=== PATIENT | male | born 1945 | race Caucasian/White ===

== ENCOUNTER 2019-01-09 20:02 | Emergency (ER) | payer MEDICARE, BC ==
--- OUTSIDE RECORDS SUMMARY | 2019-01-09 20:08 | XMS REPORT | Continuity of Care Document ---
:1945 External Reference #:[id number] Author Name Thalia Brothers Care Team Providers Name Role Phone Carlos Lester III, MD Primary Care Physician Unavailable Payers Date Identification Numbers Payment Provider Subscriber Effective: 2011 Policy Number: [id number] Medicare Joseph Philip PayID: [id number] [address] [place] [address] Effective: 2011 Policy Number: [id number] BS Facets Nayely Philip PayID: [id number] [address] [address] JOSE [place]ADALUPE Jimenez [phone] Effective: 2010 Policy Number: [id number] BS Of SINDI Philip Expires: 2011 PayID: [id number] [address] [address] JOSE GUADALUPE Jimenez [phone] Expires: 2010 Policy Number: [id number] BS Of SINDI Philip PayID: [id number] [address] [address] JOSE GUADALU[place] Jimenez [phone] Advance Directives Type Date Description Status Comment Other Directive 08/31/1996 Health Care Proxy Current and Verified Problems Active Problems Provider Date Benign essential hypertension Carlos Lester M.D. Onset: 02/22/2011 Benign localized hyperplasia of prostate Carlos Lester M.D. Onset: 2010 Pure hypercholesterolemia Carlos Lester M.D. Onset: 09/04/2013 Minimal cognitive impairment Carlos Lester M.D. Onset: 06/27/2017 Benign prostatic hypertrophy without outflow Carlos Lester M.D. Onset: obstruction Essential hypertension Carlos Lester M.D. Onset: 07/07/2016 Family History Date Family Member(s) Observation Comments General Unknown Adopted Father Unknown Father due to Sudden () - adoptive father: mid 80s Mother Unknown Mother due to Natural Causes () - Adoptive mother: age 98 First Brother non-identical twin obesity; ? HTN Social History Type Date Description Comments Sex Unknown Marital Status Lives With Occupation [employer] for a car [employer] needed [employer] Occupation Retired Tobacco Use Start: Unknown Never Smoked Cigarettes ETOH Use Occasionally consumes beer Tobacco Use Start: Unknown Patient has never smoked Recreational Drug Use Never Used Drugs Smoking Status Reviewed: 12/28/18 Patient has never smoked Exercise Type/Frequency Exercises regularly active around the house; walks on occ Allergies, Adverse Reactions, Alerts Description No Known Drug Allergies Medications Active Medications SIG Qnty Indications Ordering Provider Date Donepezil HCL 1 by mouth every 30tabs Juan Francisco Samson, 2018 10mg day M.D. Tablets Lisinopril-Hydrochlor take 1 tablet by 30tabs Carlos Lester, 2006 othiazide mouth every M.D. 20-25mg morning Tablets Quetiapine Fumarate 1 tab daily by Unknown mouth 25mg Tablets History Medications Vitamin D High Potency 1 by mouth Carlos Lester, 01/15/2016 - every day M.D. 07/07/2016 1000Unit Capsules Citalopram 1 po qd 30tabs 311 Carlos Lester, 01/07/2010 - Hydrobromide M.D. 08/07/2010 20mg Tablets Motrin Ib prn Unknown - 200mg Tablets 01/07/2010 Donepezil HCL 1 tab by mouth Juan Francisco Samson, - 5mg Tablets every day M.D. 2018 Immunizations CPT Code Status Date Vaccine Lot # [id number] Given 04/24/2018 Pneumonia Vaccine [id number] Given 04/24/2018 Influenza Virus Vaccine, Quadrivalent, Split, Preservative Free 37154 Given 04/01/2017 Influenza Virus Vaccine, Quadrivalent, Split, Preservative Free 26740 Given 04/01/2017 Pneumococcal Conjugate Vaccine 13 Valent For Intramuscular Use 96704 Given 04/19/2016 Fluzone High Dose 37931 Given 08/01/2015 Zoster (Zostavax) 46299 Given 04/18/2015 Influenza Virus Vaccine, Quadrivalent, Split, [id number] Preservative Free 77521 Given 09/04/2014 Pneumococcal Conjugate Vaccine 13 Valent For [id number] Intramuscular Use 97492 Given 04/14/2014 Fluzone High Dose 07671 Given 09/04/2013 Tdap - Tetanus/Diptheria/Acellular Pertussis [id number] Given 04/27/2013 Afluria Vaccine [id number] Given 04/19/2012 Fluzone Vaccine [id number] 00455 Given 02/17/2012 Pneumonia Vaccine [id number] 70388 Given 05/07/2008 Influenza Virus 3Yrs & Over 02247 Given 05/07/2008 Influenza Virus 3Yrs & Over 93554 Given 08/15/2003 Td (History By Patient) Vital Signs Date Vital Result Comment 2018 9:10am Height 67 inches 5'7" Weight 175.00 lb Heart Rate 68 /min BP Systolic Sitting 124 mmHg BP Diastolic Sitting 70 mmHg Respiratory Rate 16 /min O2 % BldC Oximetry 97 % BMI (Body Mass Index) 27.4 kg/m2 06/27/2017 9:40am Height 67.5 inches 5'7.50" Weight 182.00 lb Heart Rate 77 /min BP Systolic Sitting 120 mmHg BP Diastolic Sitting 78 mmHg Body Temperature 97.2 F O2 % BldC Oximetry 98 % BMI (Body Mass Index) 28.1 kg/m2 07/07/2016 9:56am Weight 179.00 lb Heart Rate 70 /min BP Systolic Sitting 112 mmHg BP Diastolic Sitting 80 mmHg Body Temperature 97.6 F O2 % BldC Oximetry 97 % 01/06/2016 3:54pm Height 67.5 inches 5'7.50" Weight 180.00 lb Heart Rate 67 /min BP Systolic Sitting 128 mmHg BP Diastolic Sitting 80 mmHg Body Temperature 97.4 F BMI (Body Mass Index) 27.8 kg/m2 09/04/2014 9:10am Height 67.75 inches 5'7.75" Weight 186.00 lb Heart Rate 66 /min BP Systolic Sitting 118 mmHg BP Diastolic Sitting 78 mmHg Body Temperature 97.7 F BMI (Body Mass Index) 28.5 kg/m2 03/04/2014 10:31am Height 67.75 inches 5'7.75" Weight 175.75 lb Heart Rate 68 /min BP Systolic Sitting 116 mmHg BP Diastolic Sitting 64 mmHg Body Temperature 98.0 F BMI (Body Mass Index) 26.9 kg/m2 09/04/2013 2:52pm Height 68 inches 5'8" Weight 179.50 lb Heart Rate 76 /min BP Systolic Sitting 136 mmHg BP Diastolic Sitting 88 mmHg BMI (Body Mass Index) 27.3 kg/m2 02/17/2012 8:44am Height 68.25 inches 5'8.25" Weight 177.75 lb Heart Rate 72 /min BP Systolic Sitting 120 mmHg BP Diastolic Sitting 78 mmHg BMI (Body Mass Index) 26.8 kg/m2 08/25/2011 9:12am Height 68.25 inches 5'8.25" Weight 186.50 lb Heart Rate 76 /min BP Systolic Sitting 98 mmHg BP Diastolic Sitting 76 mmHg BMI (Body Mass Index) 28.1 kg/m2 02/22/2011 3:39pm Weight 180.00 lb Heart Rate 66 /min BP Systolic Sitting 112 mmHg BP Diastolic Sitting 74 mmHg 08/07/2010 9:09am Weight 187.00 lb Heart Rate 82 /min BP Systolic Sitting 124 mmHg BP Diastolic Sitting 80 mmHg O2 % BldC Oximetry 95 % 02/04/2010 10:49am Weight 175.00 lb Heart Rate 78 /min BP Systolic Sitting 116 mmHg BP Diastolic Sitting 78 mmHg 01/07/2010 9:50am Weight 175.75 lb Heart Rate 66 /min BP Systolic Sitting 120 mmHg BP Diastolic Sitting 78 mmHg 09/29/2009 10:48am Height 68.75 inches 5'8.75" Weight 185.00 lb Heart Rate 72 /min BP Systolic Sitting 126 mmHg BP Diastolic Sitting 78 mmHg BMI (Body Mass Index) 27.5 kg/m2 01/11/2008 9:50am Height 68.75 inches 5'8.75" Weight 182.00 lb Heart Rate 76 /min BP Systolic Sitting 114 mmHg BP Diastolic Sitting 74 mmHg BMI (Body Mass Index) 27.1 kg/m2 07/10/2007 11:09am Height 68.75 inches 5'8.75" Weight 189.00 lb Heart Rate 72 /min BP Systolic Sitting 118 mmHg BP Diastolic Sitting 78 mmHg BMI (Body Mass Index) 28.1 kg/m2 Results Test Date Facility Test Result H/L Range Note Vitamin B12 And 2018 [facility] Vitamin B12 <pending> Folate Serum [address] [place] [address] [phone] Folic Acid (Folate) <pending> Laboratory test 2018 [facility] Methylmalonic Acid < pending> finding [address] [place] [address] [phone] Lipid Profile 06/20/2017 [facility] Triglycerides 90 mg/dL 1 (Trig/Chol/HDL) [address] [place] [address] [phone] Cholesterol 189 mg/dL 2 HDL Cholesterol 41.7 mg/dL 3 LDL Cholesterol 129 mg/dL 4 Comp Metabolic Panel 06/20/2017 [facility] Sodium 138 mmol/L N 133-[address] [place] [address] [phone] Potassium 4.4 mmol/L N 3.5-5.0 Chloride 102 mmol/L N 101-111 Co2 Carbon Dioxide 31 mmol/L N 22-32 Anion Gap 5 mmol/L N 2-11 Glucose 80 mg/dL N 70-100 Blood Urea Nitrogen 14 mg/dL N 6-24 Creatinine 0.83 mg/dL N 0.67-1.17 BUN/Creatinine Ratio 16.9 N 8-20 Calcium 9.7 mg/dL N 8.6-10.3 Total Protein 7.5 g/dL N 6.4-8.9 Albumin 4.2 g/dL N 3.2-5.2 Globulin 3.3 g/dL N 2-4 Albumin/Globulin Ratio 1.3 N 1-3 Total Bilirubin 0.80 mg/dL N 0.2-1.0 Alkaline Phosphatase 78 U/L N 34-104 Alt 19 U/L N 7-52 Ast 20 U/L N 13-39 Egfr Non- 91.6 >60 Egfr 117.8 >60 5 Laboratory test 01/08/2016 [facility] TSH (Thyroid 1.48 ?IU/mL N 0.34-5.[address] Stim Horm) [place] [address] [phone] Urinalysis 01/08/2016 [facility] Urine Color Yellow N Profile [address] [place] [address] [phone] Urine Appearance Clear N Urine Specific [place] 1.025 N 1.010-1.030 Urine pH 5.0 N 5-9 Urine Urobilinogen Negative N Negative Urine Ketones Negative N Negative Urine Protein Negative N Negative Urine Leukocytes Negative N Negative Urine Blood Negative N Negative Urine Nitrite Negative N Negative Urine Bilirubin Negative N Negative Urine Glucose Negative N Negative Vitamin B12 And 01/08/2016 [facility] Vitamin B12 183 pg/mL N 180-914 [address] [place] [address] [phone] Folic Acid (Folate) > 20.00 ng/mL N >3.99 8 Laboratory 01/08/2016 [facility] Syphillis Igg Nonreactive N Nonreactive [address] W/[place] [address] [phone] Vitamin D Total 25(Oh) 23.3 ng/mL Low 30-50 10 PSA Screening 3.877 ng/mL N 0-4.000 11 Lipid Profile 12/30/2015 [facility] Triglycerides 91 mg/dL N 12 (Trig/Chol/HDL) [address] [place] [address] [phone] Cholesterol 191 mg/dL N 13 HDL Cholesterol 37.9 mg/dL N 14 LDL Cholesterol 135 mg/dL N 15 Comp Metabolic Panel 12/30/2015 [facility] Sodium 137 mmol/L N 133-145 [address] [place] [address] [phone] Potassium 4.2 mmol/L N 3.5-5.0 Chloride 104 mmol/L N 101-111 Co2 Carbon Dioxide 27 mmol/L N 22-32 Anion Gap 6 mmol/L N 2-11 Glucose 91 mg/dL N 70-100 Blood Urea Nitrogen 9 mg/dL N 6-24 Creatinine 0.79 mg/dL N 0.67-1.17 BUN/Creatinine Ratio 11.4 N 8-20 Calcium 9.3 mg/dL N 8.6-10.3 Total Protein 7.4 g/dL N 6.4-8.9 Albumin 4.3 g/dL N 3.2-5.2 Globulin 3.1 g/dL N 2-4 Albumin/Globulin Ratio 1.4 N 1-3 Total Bilirubin 0.70 mg/dL N 0.2-1.0 Alkaline Phosphatase 76 U/L N 34-104 Alt 24 U/L N 7-52 Ast 23 U/L N 13-39 Egfr Non- 97.2 N >60 Egfr 125.1 N >60 16 Laboratory 08/28/2014 [facility] Hepatitis C Nonreactive N Nonreactive 17, test finding [address] Antibody 18 [place] [address] [phone] PSA Screening 3.572 ng/mL N 0-4.000 19 Lipid Profile 08/28/2014 [facility] Triglycerides 87 mg/dL N 20 (Trig/Chol/HDL) [address] [place] [address] [phone] Cholesterol 190 mg/dL N 21 HDL Cholesterol 41.9 mg/dL N 22 LDL Cholesterol 131 mg/dL N 23 Comp Metabolic Panel 08/28/2014 [facility] Sodium 137 mmol/L N 133-[address] [place] [address] [phone] Potassium 4.8 mmol/L N 3.5-5.0 Chloride 103 mmol/L N 101-111 Co2 Carbon Dioxide 30 mmol/L N 22-32 Anion Gap 4 mmol/L N 2-11 Glucose 91 mg/dL N 70-100 Blood Urea Nitrogen 11 mg/dL N 6-24 Creatinine 0.77 mg/dL N 0.67-1.17 BUN/Creatinine Ratio 14.3 N 8-20 Calcium 9.6 mg/dL N 8.6-10.3 Total Protein 7.4 g/dL N 6.4-8.9 Albumin 4.4 g/dL N 3.2-5.2 Globulin 3.0 g/dL N 2-4 Albumin/Globulin Ratio 1.5 N 1-3 Total Bilirubin 0.70 mg/dL N 0.2-1.0 Alkaline Phosphatase 70 U/L N 34-104 Alt 20 U/L N 7-52 Ast 21 U/L N 13-39 Egfr Non- 100.8 N >60 Egfr 129.6 N >60 24 CBC Auto 08/28/2014 [facility] White Blood 4.4 10^3/uL Low 4.8 -10.[address] [place] [address] [phone] Red Blood Count 5.09 10^6/uL N 4.0-5.4 Hemoglobin 15.5 g/dL N 14.0-18.0 Hematocrit 46 % N 42-52 Mean Corpuscular Volume 90 fL N 80-94 Mean Corpuscular Hemoglobin 30 pg N 27-31 Mean Corpuscular HGB Conc 34 g/dL N 31-36 Red Cell Distribution Width 14 % N 10.5-15 Platelet Count 232 10^3/uL N 150-450 Mean Platelet Volume 9 um3 N 7.4-10.4 Abs Neutrophils 2.6 10^3/uL N 1.5-7.7 Abs Lymphocytes 1.2 10^3/uL N 1.0-4.8 Abs Monocytes 0.4 10^3/uL N 0-0.8 Abs Eosinophils 0.1 10^3/uL N 0-0.6 Abs Basophils 0.1 10^3/uL N 0-0.2 Abs Nucleated RBC 0.01 10^3/uL N Granulocyte % 59.5 % N 38-83 Lymphocyte % 26.5 % N 25-47 Monocyte % 9.5 % High 1-9 Eosinophil % 2.3 % N 0-6 Basophil % 2.2 % High 0-2 Nucleated Red Blood Cells % 0.2 N Lipid Profile 08/27/2013 [facility] Triglycerides 70 mg/dL 40 -200 (Trig/Chol/HDL) [address] [place] [address] [phone] Cholesterol 209 mg/dL High Less than 200 HDL Cholesterol 49 mg/dL 40-60 25 Cholesterol/HDL Ratio 4.3 Average 1-4.44 LDL Cholesterol 146.0 High Less Than 100 26 Laboratory test 08/27/2013 [facility] PSA Diagnostic 3.281 0- 4.000 [address] ng/[place] [address] [phone] Basic Metabolic 08/27/2013 [facility] Sodium 136 mmol/L 133- [address] [place] [address] [phone] Potassium 4.2 mmol/L 3.5-5.0 Chloride 101 mmol/L 101-111 Co2 Carbon Dioxide 29.0 mmol/L 22-32 Anion Gap 6.0 mmol/L 2-11 Glucose 88 mg/dL 70-100 Blood Urea Nitrogen 8 mg/dL 6-24 Creatinine 0.80 mg/dL 0.50-1.40 BUN/Creatinine Ratio 10.0 8-20 Calcium 9.4 mg/dL 8.1-9.9 Egfr Non- 96.7 >60 Egfr 124.4 >60 28 Comp Metabolic Panel 02/14/2012 [facility] Sodium 139 mmol/L 135-145 [address] [place] [address] [phone] Potassium 3.9 mmol/L 3.5-5.0 Chloride 107 mmol/L 101-111 Co2 (Carbon Dioxide) 26.0 mmol/L 22-32 Anion Gap 6.0 mmol/L 2-11 29 Glucose 86 mg/dL 70-100 BUN 9 mg/dL 6-24 Creatinine 0.9 mg/dL 0.50-1.40 One Over Creatinine 1.11 BUN/Creatinine Ratio 10.0 8-20 Calcium 9.4 mg/dL 8.1-9.9 Total Protein 6.7 GM/DL 6.2-8.1 Albumin 4.0 GM/DL 3.2-5.2 Globulin 2.7 GM/DL 2-4 Albumin/Globulin Ratio 1.5 1-3 Bilirubin Total 1.0 mg/dL 0.4-1.5 30 Alkaline Phosphatase 80 U/L 39-117 Alt (SGPT) 18 U/L 17-63 Ast (Sgot) 27 U/L 12-42 eGFR Non- 84.7 > 60 eGFR 108.9 > 60 31 Lipid Profile 02/14/2012 [facility] Triglyceride 81 mg/dL 40- 200 (Trig/Chol/HDL) [address] [place] [address] [phone] Cholesterol 177 mg/dL Less Than 200 32 High Density Lipoprotein 39 mg/dL Low 40-60 33 Cholesterol/HDL Ratio 4.54 AVERAGE 1-4.97 Low Density Lipoprotein 122 mg/dL High Less Than 100 34 Laboratory test 02/14/2012 [facility] PSA 2.72 NG/ML 0-4 35 finding [address] [place] [address] [phone] DR [facility] 01/13/2011 [facility] TSH 2.16 MIU/ML 0.34- 5.60 Panel [address] [place] [address] [phone] Comp Metabolic 01/13/2011 [facility] Sodium 139 mmol/L 135- 145 Panel [address] [place] [address] [phone] Potassium 4.3 mmol/L 3.5-5.0 Chloride 103 mmol/L 101-111 Co2 (Carbon Dioxide) 28.0 mmol/L 22-32 Anion Gap 8.0 mmol/L 2-11 36 Glucose 73 mg/dL 70-100 BUN 11 mg/dL 6-24 Creatinine 0.80 mg/dL 0.50-1.40 One Over Creatinine 1.20 BUN/Creatinine Ratio 13.8 8-20 Calcium 9.4 mg/dL 8.1-9.9 Total Protein 7.3 GM/DL 6.2-8.1 Albumin 4.1 GM/DL 3.2-5.2 Globulin 3.2 GM/DL 2-4 Albumin/Globulin Ratio 1.3 1-3 Bilirubin Total 0.8 mg/dL 0.4-1.5 37 Alkaline Phosphatase 79 U/L 39-117 Alt (SGPT) 19 U/L 17-63 Ast (Sgot) 22 U/L 12-42 eGFR Non- 97.3 > 60 eGFR 125.2 > 60 38 Lipid Profile 01/13/2011 [facility] Triglyceride 84 mg/dL 40- 200 (Trig/Chol/HDL) [address] [place] [address] [phone] Cholesterol 195 mg/dL Less Than 200 39 High Density Lipoprotein 44 mg/dL 40-60 40 Cholesterol/HDL Ratio 4.43 AVERAGE 1-4.97 Low Density Lipoprotein 134 mg/dL High Less Than 100 41 CBC With 01/13/2011 [facility] White Blood 5.1 CUMM 4.8-10.8 Electronic Diff [address] [place] [address] [phone] Red Cell Count 4.76 CUMM 4.6-6.2 Hemoglobin 14.6 g/dL 14.0-18.0 Hematocrit 44 % 42-52 Mean Corpuscular Volume 92 um3 80-94 Mean Corpuscular Hemoglob 31 pg 27-31 Mean Corpuscular HGB Cone 33 g/dL 32-36 Redcell Distribution WDTH 14 % 10.5-15 Platelet Count 244 CUMM 150-450 Mean Platelet Volume 8.5 um3 7.4-10.4 Gran % 66.7 % 38-83 Lymph % 23.0 % Low 25-47 Mononuclear % 7.9 % 1-9 Eosinophil % 1.8 % 0-6 Basophil % 0.6 % 0-2 Abs Lymphs 1.2 1.0-4.8 Abs Mononuclear 0.4 0-0.8 Absolute Neutrophil Count 3.4 1.5-7.7 Abs Eosinophils 0.1 0-0.6 Abs Basophils 0 0-0.2 CBC With Manual 01/07/2010 [facility] White Blood 6.3 CUMM 4.8-10.[address] [place] [address] [phone] Red Cell Count 4.99 CUMM 4.6-6.2 Hemoglobin 15.4 g/dL 14.0-18.0 Hematocrit 45 % 42-52 Mean Corpuscular Volume 89 um3 80-94 Mean Corpuscular Hemoglob 31 pg 27-31 Mean Corpuscular HGB Cone 35 g/dL 32-36 Redcell Distribution WDTH 15 % 10.5-15 Platelet Count 264 CUMM 150-450 Mean Platelet Volume 8.1 um3 7.4-10.4 Polysegmented Neutrophil 73 % 38-83 Band Neutrophil 2 % 0-8 Lymphocyte 15 % Low 25-47 Monocyte 4 % 0-13 Basophil 2 % 0-2 Atypical Lymph 4 % 0-6 NRBC 1 High 0-0 Absolute Neutrophil Count 4.7 Anisocytosis SLIGHT Polychromasia SLIGHT Laboratory test 01/07/2010 [facility] TSH 1.49 MIU/ML 0.34- 5.[address] [place] [address] [phone] PSA Screening 2.63 NG/ML 0-4 42 Basic Metabolic Panel 01/07/2010 [facility] Sodium 139 mmol/L 135-[address] [place] [address] [phone] Potassium 4.9 mmol/L 3.5-5.0 Chloride 103 mmol/L 101-111 Co2 (Carbon Dioxide) 28.0 mmol/L 22-32 Anion Gap 8.0 mmol/L 2-11 43 Glucose 95 mg/dL 70-100 44 BUN 9 mg/dL 6-24 Creatinine 0.80 mg/dL 0.50-1.40 One Over Creatinine 1.20 BUN/Creatinine Ratio 11.3 8-20 Calcium 10.1 mg/dL High 8.1-9.9 45 eGFR Non- 103.8 > 60 eGFR 125.6 > 60 46 Laboratory test 09/22/2009 [facility] Troponin-I 0 NG/ML [address] (TnI) [place] [address] [phone] CBC With Manual 09/22/2009 [facility] White Blood 12.3 CUMM High 4.8-[address] Count 0.8 [place] [address] [phone] Red Cell Count 4.91 CUMM 4.6-6.2 Hemoglobin 15.2 g/dL 14.0-18.0 Hematocrit 43 % 42-52 Mean Corpuscular Volume 88 um3 80-94 Mean Corpuscular Hemoglob 31 pg 27-31 Mean Corpuscular HGB Cone 35 g/dL 32-36 Redcell Distribution WDTH 14 % 10.5-15 Platelet Count 236 CUMM 150-450 Mean Platelet Volume 7.1 um3 Low 7.4-10.4 Polysegmented Neutrophil 85 % High 38-83 Band Neutrophil 3 % 0-8 Lymphocyte 2 % Low 25-47 Monocyte 7 % 0-13 Basophil 1 % 0-2 Atypical Lymph 2 % 0-6 Absolute Neutrophil Count 10.8 Anisocytosis SLIGHT Macrocytosis SLIGHT Polychromasia SLIGHT CMP Panel Stat 09/22/2009 [facility] Sodium 132 mmol/L Low 135 -[address] [place] [address] [phone] Potassium 3.7 mmol/L 3.5-5.0 Chloride 100 mmol/L Low 101-111 Co2 (Carbon Dioxide) 27.0 mmol/L 22-32 Anion Gap 5.0 mmol/L 2-11 48 Glucose 120 mg/dL High 70-100 49 BUN 11 mg/dL 6-24 Creatinine 0.75 mg/dL 0.50-1.40 One Over Creatinine 1.30 BUN/Creatinine Ratio 14.7 8-20 Calcium 9.3 mg/dL 8.1-9.9 50 Total Protein 7.3 GM/DL 6.2-8.1 Albumin 4.1 GM/DL 3.2-5.2 Globulin 3.2 GM/DL 2-4 Albumin/Globulin Ratio 1.3 1-3 Bilirubin Total 0.9 mg/dL 0.4-1.5 51 Alkaline Phosphatase 67 U/L 39-117 Alt (SGPT) 31 U/L 17-63 Ast (Sgot) 46 U/L High 12-42 eGFR Non- 112.2 > 60 eGFR 135.7 > 60 52 Laboratory 07/01/2008 [facility] PSA,Diagnostic 2.13 0-4 53 , 54 test finding [address] NG/[place] [address] [phone] CBC With 01/10/2008 [facility] White Blood Count 5.1 CUMM 4.8 -10. Electronic [address] [place] [address] [phone] Red Cell Count 4.80 CUMM 4.6-6.2 Hemoglobin 14.4 g/dL 14.0-18.0 Hematocrit 42 % 42-52 Mean Corpuscular Volume 87 um3 80-94 Mean Corpuscular Hemoglob 30 pg 27-31 Mean Corpuscular HGB Cone 35 g/dL 32-36 Redcell Distribution WDTH 14 % 10.5-15 Platelet Count 276 CUMM 150-450 Mean Platelet Volume 8.6 um3 7.4-10.4 Gran % 66.3 % 38-83 Lymph % 22.1 % 20-45 Mononuclear % 9.6 % High 1-9 Eosinophil % 1.6 % 0-6 Basophil % 0.4 % 0-2 Abs Lymphs 1.1 1.0-4.8 Abs Mononuclear 0.5 0-0.8 Absolute Neutrophil Count 3.4 1.5-7.7 Abs Eosinophils 0.1 0-0.6 Abs Basophils 0 0-0.2 Comp Metabolic Panel 01/10/2008 [facility] Sodium 137 mmol/L 135-[address] [place] [address] [phone] Potassium 5.3 mmol/L High 3.5-5.0 Chloride 105 mmol/L 101-111 Co2 (Carbon Dioxide) 30.0 mmol/L 22-32 Anion Gap 2.0 mmol/L 2-11 55 Glucose 93 mg/dL 70-105 BUN 11 mg/dL 6-24 Creatinine 0.9 mg/dL 0.5-1.4 One Over Creatinine 1.11 BUN/Creatinine Ratio 12.2 8-20 Calcium 9.3 mg/dL 8.1-9.9 56 Total Protein 7.5 GM/DL 6.2-8.1 Albumin 3.9 GM/DL 3.2-5.2 Globulin 3.6 GM/DL 2-4 Albumin/Globulin Ratio 1.1 1-3 Bilirubin Total 0.7 mg/dL 0.4-1.5 Alkaline Phosphatase 80 U/L 39-117 Alt (SGPT) 22 U/L 17-63 Ast (Sgot) 25 U/L 12-42 Lipid Profile 01/10/2008 [facility] Triglyceride 45 mg/dL 40- 200 (Trig/Chol/HDL) [address] [place] [address] [phone] Cholesterol 169 mg/dL Less Than 200 57 High Density Lipoprotein 38 mg/dL Low 40-60 58 Cholesterol/HDL Ratio 4.45 AVERAGE 1-4.97 Low Density Lipoprotein 122 mg/dL High Less Than 100 59 Laboratory test 01/10/2008 [facility] TSH 1.61 MIU/ML 0.34- 5.60 finding [address] [place] [address] [phone] PSA Screening 2.30 NG/ML 0-4 60 1 Desirable: <150 Borderline High: 150-199 High: 200-499 Very High: >500 2 Desirable: <200 Borderline High: 200-239 High: >239 3 Low: <40 Desirable: 40-60 High: >60 4 Desirable: <100 Near Optimal: 100-129 Borderline High: 130-159 High: 160-189 Very High: >189 5 Because ethnic data is not always readily available, this report includes an eGFR for both -Americans and non- Americans. The National Kidney Disease Education Program (NKDEP) does not endorse the use of the MDRD equation for patients that are not between the ages of 18 and 70, are , have extremes of body size, muscle mass, or nutritional status, or are non- or non-. According to the National Kidney Foundation, irrespective of diagnosis, the stage of the disease is based on the level of kidney function: Stage Description GFR(mL/min/1.73 m(2)) 1 Kidney damage with normal or decreased GFR 90 2 Kidney damage with mild decrease in GFR 60-89 3 Moderate decrease in GFR 30-59 4 Severe decrease in GFR 15-29 5 Kidney failure <15 (or dialysis) 6 [id number] Normal Range 180 to 914 Indeterminate Range 145 to 180 Deficient Range <145 8 [id number] Warning: A positive result is not useful for establishing a diagnosis of syphilis. In most situations, such a result may reflect a prior treated infection; a negative result can exclude a diagnosis of syphilis except for incubating or early primary disease. 10 [id number] Serum levels of PSA measured using the [employer] DXI Hybritech immunoassay should not be interpreted as absolute evidence of the presence or absence of disease. The PSA value should be used in conjunction with other pertinent clinical diagnostic procedures. The values obtained with different assay methods or kits cannot be used interchangeably. 12 Desirable <150 Borderline high 150-199 High 200-499 Very High >500 13 Desirable <200 Borderline high 200-239 High >239 14 Low <40 Desirable: 40-60 High: >60 15 Desirable: <100 mg/dL Near Optimal: 100-129 mg/dL Borderline High: 130-159 mg/dL High: 160-189 mg/dL Very High: >189 mg/dL 16 Because ethnic data is not always readily available, this report includes an eGFR for both -Americans and non- Americans. The National Kidney Disease Education Program (NKDEP) does not endorse the use of the MDRD equation for patients that are not between the ages of 18 and 70, are , have extremes of body size, muscle mass, or nutritional status, or are non- or non-. According to the National Kidney Foundation, irrespective of diagnosis, the stage of the disease is based on the level of kidney function: Stage Description GFR(mL/min/1.73 m(2)) 1 Kidney damage with normal or decreased GFR 90 2 Kidney damage with mild decrease in GFR 60-89 3 Moderate decrease in GFR 30-59 4 Severe decrease in GFR 15-29 5 Kidney failure <15 (or dialysis) 17 FASTING 18 FASTING 19 Serum levels of PSA measured using the [employer] DXI Hybritech immunoassay should not be interpreted as absolute evidence of the presence or absence of disease. The PSA value should be used in conjunction with other pertinent clinical diagnostic procedures. The values obtained with different assay methods or kits cannot be used interchangeably. 20 Desirable <150 Borderline high 150-199 High 200-499 Very High >500 21 Desirable <200 Borderline high 200-239 High >239 22 Low <40 Desirable: 40-60 High: >60 23 Desirable <100 Near Optimal 100-129 Borderline high 130-159 High 160-189 Very High >189 24 Because ethnic data is not always readily available, this report includes an eGFR for both -Americans and non- Americans. The National Kidney Disease Education Program (NKDEP) does not endorse the use of the MDRD equation for patients that are not between the ages of 18 and 70, are , have extremes of body size, muscle mass, or nutritional status, or are non- or non-. According to the National Kidney Foundation, irrespective of diagnosis, the stage of the disease is based on the level of kidney function: Stage Description GFR(mL/min/1.73 m(2)) 1 Kidney damage with normal or decreased GFR 90 2 Kidney damage with mild decrease in GFR 60-89 3 Moderate decrease in GFR 30-59 4 Severe decrease in GFR 15-29 5 Kidney failure <15 (or dialysis) 25 HDL Interpretation: Undesirable: High Risk: Less than 40 mg/dL Desirable: Low Risk: Greater than 60 mg/dL 26 LDL Interpretation: Low Risk Optimal Level: LDL Less than 100 mg/dL Near or Above Optimal: LDL 100-129 mg/dL Borderline High Risk: LDL 130-159 mg/dL High Risk: LDL 160-189 mg/dL Very High Risk: LDL Greater than 189 mg/dL 27 Serum levels of PSA measured using the [place] [employer] DXI Hybritech immunoassay should not be interpreted as absolute evidence of the presence or absence of disease. The PSA value should be used in conjunction with other pertinent clinical diagnostic procedures. The values obtained with different assay methods or kits cannot be used interchangeably. 28 Because ethnic data is not always readily available, this report includes an eGFR for both -Americans and non- Americans. The National Kidney Disease Education Program (NKDEP) does not endorse the use of the MDRD equation for patients that are not between the ages of 18 and 70, are , have extremes of body size, muscle mass, or nutritional status, or are non- or non-. According to the National Kidney Foundation, irrespective of diagnosis, the stage of the disease is based on the level of kidney function: Stage Description GFR(mL/min/1.73 m(2)) 1 Kidney damage with normal or decreased GFR 90 2 Kidney damage with mild decrease in GFR 60-89 3 Moderate decrease in GFR 30-59 4 Severe decrease in GFR 15-29 5 Kidney failure <15 (or dialysis) 29 Anion gap measurement may be of limited value in the presence of any alkalosis, especially in a combined acid base disorder. . 30 A metabolite of Naproxen, O-desmethylnaproxen, has been shown to interfere with the [place] method for measuring total bilirubin. Samples from patients who have taken Naproxen have shown spurious elevation in total bilirubin levels. 31 Because ethnic data is not always readily available, this report includes an eGFR for both -Americans and non- Americans. The National Kidney Disease Education Program (NKDEP) does not endorse the use of the MDRD equation for patients that are not between the ages of 18 and 70, are , have extremes of body size, muscle mass, or nutritional status, or are non- or non-. According to the National Kidney Foundation, irrespective of diagnosis, the stage of the disease is based on the level of kidney function: Stage Description GFR(mL/min/1.73 m(2)) 1 Kidney damage with normal or decreased GFR 90 2 Kidney damage with mild decrease in GFR 60-89 3 Moderate decrease in GFR 30-59 4 Severe decrease in GFR 15-29 5 Kidney failure <15 (or dialysis) 32 CHOLESTEROL INTERPRETATION: Desirable: Less than 200 MG/DL Borderline-High Risk: 200-239 MG/DL High-Risk: 240 MG/DL and over 33 HDL INTERPRETATION: Undesirable: High Risk: Less than 40 MG/DL Desirable: Low Risk: Greater than 60 MG/DL 34 LDL INTERPRETATION: Low Risk Optimal Level: LDL Less than 100 MG/DL Near or Above Optimal: LDL 100-129 MG/DL Borderline High Risk: LDL 130-159 MG/DL High Risk: LDL 160-189 MG/DL Very High Risk: LDL Greater than 189 MG/DL 35 * SERUM LEVELS OF PSA MEASURED USING THE [employer] ACCESS HYBRITECH IMMUNOASSAY SHOULD NOT BE INTERPRETED ABSOLUTE EVIDENCE OF THE PRESENCE OR ABSENCE OF DISEASE. THE PSA VALUE SHOULD BE USED IN CONJUNCTION WITH OTHER PERTINENT CLINICAL DIAGNOSTIC PROCEDURES. The values obtained with different assay methods or kits cannot be used interchangeably. 36 Anion gap measurement may be of limited value in the presence of any alkalosis, especially in a combined acid base disorder. . 37 A metabolite of Naproxen, O-desmethylnaproxen, has been shown to interfere with the Jendrassik-Philip method for measuring total bilirubin. Samples from patients who have taken Naproxen have shown spurious elevation in total bilirubin levels. 38 Because ethnic data is not always readily available, this report includes an eGFR for both -Americans and non- Americans. The National Kidney Disease Education Program (NKDEP) does not endorse the use of the MDRD equation for patients that are not between the ages of 18 and 70, are , have extremes of body size, muscle mass, or nutritional status, or are non- or non-. According to the National Kidney Foundation, irrespective of diagnosis, the stage of the disease is based on the level of kidney function: Stage Description GFR(mL/min/1.73 m(2)) 1 Kidney damage with normal or decreased GFR 90 2 Kidney damage with mild decrease in GFR 60-89 3 Moderate decrease in GFR 30-59 4 Severe decrease in GFR 15-29 5 Kidney failure <15 (or dialysis) 39 CHOLESTEROL INTERPRETATION: Desirable: Less than 200 MG/DL Borderline-High Risk: 200-239 MG/DL High-Risk: 240 MG/DL and over 40 HDL INTERPRETATION: Undesirable: High Risk: Less than 40 MG/DL Desirable: Low Risk: Greater than 60 MG/DL 41 LDL INTERPRETATION: Low Risk Optimal Level: LDL Less than 100 MG/DL Near or Above Optimal: LDL 100-129 MG/DL Borderline High Risk: LDL 130-159 MG/DL High Risk: LDL 160-189 MG/DL Very High Risk: LDL Greater than 189 MG/DL 42 * SERUM LEVELS OF PSA MEASURED USING THE [employer] ACCESS HYBRITECH IMMUNOASSAY SHOULD NOT BE INTERPRETED ABSOLUTE EVIDENCE OF THE PRESENCE OR ABSENCE OF DISEASE. THE PSA VALUE SHOULD BE USED IN CONJUNCTION WITH OTHER PERTINENT CLINICAL DIAGNOSTIC PROCEDURES. 43 Anion gap measurement may be of limited value in the presence of any alkalosis, especially in a combined acid base disorder. . 44 Note change in reference range as of 03/14/08. The change was based on recommendations from the [place] [employer]. 45 Please note change in reference range effective 07 . 46 Because ethnic data is not always readily available, this report includes an eGFR for both -Americans and non- Americans. The National Kidney Disease Education Program (NKDEP) does not endorse the use of the MDRD equation for patients that are not between the ages of 18 and 70, are , have extremes of body size, muscle mass, or nutritional status, or are non- or non-. According to the National Kidney Foundation, irrespective of diagnosis, the stage of the disease is based on the level of kidney function: Stage Description GFR(mL/min/1.73 m(2)) 1 Kidney damage with normal or decreased GFR 90 2 Kidney damage with mild decrease in GFR 60-89 3 Moderate decrease in GFR 30-59 4 Severe decrease in GFR 15-29 5 Kidney failure <15 (or dialysis) 47 New Reference Range and Interpretation effective 04/27/2002 TnI (ng/ml) INTERPRETATION Less Than 0.06 ng/mL NOT SUPPORTIVE OF DIAGNOSIS OF NE 0.06 - 0.50 ng/ml INDETERMINATE: SUGGEST SERIAL STUDIES IF CLINICALLY INDICATED. Greater than 0.5 ng/mL CONSISTENT WITH DIAGNOSIS OF NE . 48 Anion gap measurement may be of limited value in the presence of any alkalosis, especially in a combined acid base disorder. . 49 Note change in reference range as of 03/14/08. The change was based on recommendations from the [place] [employer]. 50 Please note change in reference range effective 07 . 51 A metabolite of Naproxen, O-desmethylnaproxen, has been shown to interfere with the [place]rassik-[place] method for measuring total bilirubin. Samples from patients who have taken Naproxen have shown spurious elevation in total bilirubin levels. 52 Because ethnic data is not always readily available, this report includes an eGFR for both -Americans and non- Americans. The National Kidney Disease Education Program (NKDEP) does not endorse the use of the MDRD equation for patients that are not between the ages of 18 and 70, are , have extremes of body size, muscle mass, or nutritional status, or are non- or non-. According to the National Kidney Foundation, irrespective of diagnosis, the stage of the disease is based on the level of kidney function: Stage Description GFR(mL/min/1.73 m(2)) 1 Kidney damage with normal or decreased GFR 90 2 Kidney damage with mild decrease in GFR 60-89 3 Moderate decrease in GFR 30-59 4 Severe decrease in GFR 15-29 5 Kidney failure <15 (or dialysis) 53 PATIENT MAY HAVE RESULTS PER DOCTOR'S AUTHORIZATION. Questions regarding this report should be directed to your doctor. 54 * SERUM LEVELS OF PSA MEASURED USING THE [employer] [employer] ACCESS HYBRITECH IMMUNOASSAY SHOULD NOT BE INTERPRETED ABSOLUTE EVIDENCE OF THE PRESENCE OR ABSENCE OF DISEASE. THE PSA VALUE SHOULD BE USED IN CONJUNCTION WITH OTHER PERTINENT CLINICAL DIAGNOSTIC PROCEDURES. 55 Anion gap measurement may be of limited value in the presence of any alkalosis, especially in a combined acid base disorder. . 56 Please note change in reference range effective 07 . 57 CHOLESTEROL INTERPRETATION: Desirable: Less than 200 MG/DL Borderline-High Risk: 200-239 MG/DL High-Risk: 240 MG/DL and over 58 HDL INTERPRETATION: Undesirable: High Risk: Less than 40 MG/DL Desirable: Low Risk: Greater than 60 MG/DL 59 LDL INTERPRETATION: Low Risk Optimal Level: LDL Less than 100 MG/DL Near or Above Optimal: LDL 100-129 MG/DL Borderline High Risk: LDL 130-159 MG/DL High Risk: LDL 160-189 MG/DL Very High Risk: LDL Greater than 189 MG/DL 60 * SERUM LEVELS OF PSA MEASURED USING THE [place] [employer] ACCESS HYBRITECH IMMUNOASSAY SHOULD NOT BE INTERPRETED ABSOLUTE EVIDENCE OF THE PRESENCE OR ABSENCE OF DISEASE. THE PSA VALUE SHOULD BE USED IN CONJUNCTION WITH OTHER PERTINENT CLINICAL DIAGNOSTIC PROCEDURES. Procedures Date Code Description Status 09/28/2013 [id number] Colonoscopy Completed 09/26/2003 [id number] Colonoscopy Completed Encounters Type Date Location Provider Dx Diagnosis Office Visit 06/27/2017 Juan Lester, Z00.00 Encntr for general 9:20a Internal M.D. adult medical exam [facility] w/o abnormal d findings I10 Essential (primary) hypertension E78.00 Pure hypercholesterolemia, unspecified G31.84 Mild cognitive impairment, so stated N40.0 Benign prostatic hyperplasia without lower urinry tract symp H61.23 Impacted cerumen, bilateral Office Visit 07/07/2016 Juan Rocha I10 Essential 10:00a Vanda Lester M.D. (primary) hypertension G31.84 Mild cognitive impairment, so stated Office Visit 03/04/2014 10:40a [employer] [facility] Carlos Velez. 401.1 Hypertension Benign Lc Lester M.D. Ccmob 272.0 Hypercholesterolemia Pure 600.20 Benign Localized Hyperplasia Prostate W/O Urinary Obstruct V73.89 Screening Examination Viral Diseases Other Spec Office Visit 02/17/2012 9:00a [employer] [facility] Carlos Velez. 401.1 Hypertension Bar Lester M.D. Ccmob 600.20 Benign Localized Hyperplasia Prostate W/O Urinary Obstruct V03.82 Streptococcus Pneumoniae Vaccination Spec Other Office Visit 08/25/2011 9:20a [employer] [facility] Carlos Rocha 401.1 Hypertension Benign Lc Lester M.D. Ccmob Office Visit 02/22/2011 3:20p DO Not Use [employer] [facility] Carlos E. 401.1 Hypertension Benign AT Britany Lester M.D. 600.20 Benign Localized Hyperplasia Prostate W/O Urinary Obstruct Office Visit 08/07/2010 9:00a DO Not Use [employer] [facility] [facility] Carlos E. 401.1 Hypertension Benign AT Britany Lester M.D. 311 Depressive Disorder Not Elsewhere Spec Office Visit 02/04/2010 10:40a DO Not Use [employer] [facility] AT Carlos Rocha 311 Depressive Britany Lester M.D. Disorder Not Elsewhere Spec 401.1 Hypertension Benign Office Visit 01/07/2010 10:00a DO Not Use [employer] [facility] [facility] AT Carlos Rocha 311 Depressive Britany Lester M.D. Disorder Not Elsewhere Spec 401.1 Hypertension Benign 602.9 Prostate Disorder Unspec Office Visit 09/29/2009 11:00a DO Not Use [employer] [facility] Carlos E. 719.41 Pain Joint AT Birtany Lester M.D. Shoulder Region Office Visit 01/11/2008 10:00a [facility] Carlos Rocha 602.9 Prostate AT Eligio Lester M.D. Disorder Unspec [place] 401.1 Hypertension Benign Office Visit 07/10/2007 10:45a [facility] Carlos E. 401.1 Hypertension Benign Assoc AT Bertin Lester [facility] Plan of Treatment 2018 - Juan Francisco Samson M.D.R41.3 Other amnesiaNew Xrays:MRI Brain W/O, Ordered: 12/28/18Recommendations:I recommend increasing your donepizil to 10 mgD51.9 Vitamin B12 deficiency anemia, unspecified
--- NOTE | 2019-01-09 20:48 | ED ---
Altered Mental Status - HPI Summary HPI Summary: 73 year old M presenting to [facility] accompanied by Nayely with a chief complaint of increasingly aggressive behavior since one week ago. Symptoms aggravated by nothing. Symptoms alleviated by nothing. states that patient is being treated by his primary care provider for "early signs of dementia and Alzheimer's." reports that patient is harassing her and he has been treating her poorly. She states that patient has had "intensified bully-ashley behavior" and gets angry easily. She states that she had to stay in various safe places due to his aggressive behavior. She states she has had to call the police 3 times in the past week. had an appointment this afternoon with her primary care provider who eventually referred to ED to be evaluated. spoke with Dr. Samson, who is both the patient's and 's neurologist, who advised and patient to have patient also evaluated in the ED while they were there. - History Of Current Complaint Stated Complaint: AMS PER Hx Obtained From: Patient, Family/[employer]er - Onset/Duration: Still Present Timing: Constant, Lasting Weeks - 1 Aggravating Factor(s): Nothing Alleviating Factor(s): Nothing - Allergies/Home Medications Allergies/Adverse Reactions: Allergies Allergy/AdvReac Type Severity Reaction Status Date / Time No Known Allergies Allergy Verified 01/09/19 20:43 PMH/Surg Hx/FS Hx/Imm Hx Previously Healthy: No Endocrine/Hematology History: Denies: Hx Diabetes, Hx Thyroid Disease Cardiovascular History: Reports: Hx Hypertension Denies: Hx Pacemaker/ICD Respiratory History: Denies: Hx Asthma, Hx Chronic Obstructive Pulmonary Disease (COPD) GI History: Denies: Hx Ulcer History: Denies: Hx Renal Disease Sensory History: Denies: Hx Hearing Aid Psychiatric History: Denies: Hx Panic Disorder - Surgical History Surgery Procedure, Year, and Place: DENIES Infectious Disease History: Denies: Hx Clostridium Difficile, Hx Hepatitis, Hx Human Immunodeficiency Virus (HIV), Hx of Known/Suspected MRSA, Hx Shingles, Hx Tuberculosis, Hx Known/ Suspected VRE, Hx Known/Suspected VRSA, History Other Infectious Disease, Traveled Outside the [place] in Last 30 Days - Family History Known Family History: Negative: Blood Disorder - Social History Hx Substance Use: No Substance Use Type: Reports: None Hx Tobacco Use: No Smoking Status (MU): Unknown if Ever Smoked Review of Systems Negative: Fever Neurological: Other - increasingly aggressive behavior All Other Systems Reviewed And Are Negative: Yes Physical Exam - Summary Physical Exam Summary: Patient refuses to be examined. Triage Information Reviewed: Yes Vital Signs Reviewed: Yes Altered Mental Statu Course/Dx - Course Course Of Treatment: 73 year old male brought to [facility] by his to be evaluated for being aggressive to her. Patient denies being aggressive. and patient state that the police have been involved. The patient is not consenting to being treated. He does not want to be examined. He is alert and oriented x3. Patient's was informed that she is to notify the police in case patient is aggressive to her again as police are responsible for protecting her. Patient's state that she has a safe place to go. Patient will be discharged home with follow up from primary care provider in 3 days. Patient was instructed to return to ED for new or worsening symptoms. Patient and understand and are agreeable to discharge plan. - Diagnoses Provider Diagnoses: Patient refused evaluation or treatment Discharge - Sign-Out/Discharge Documenting (check all that apply): Patient Departure - Discharge Patient Received Moderate/Deep Sedation with Procedure: No - Discharge Plan Condition: Stable Disposition: HOME Referrals: Agustin Maldonado MD [Primary Care Provider] - 3 Days Additional Instructions: Follow up with your primary care provider in 3 days. PLEASE RETURN TO THE EMERGENCY DEPARTMENT IMMEDIATELY FOR WORSENING OR CONCERNING SYMPTOMS. - Attestation Statements Document Initiated by Scribe: Yes Documenting Scribe: Emma Nunez Provider For Whom Scribe is Documenting (Include Credential): Aby Dow MD Scribe Attestation: Emma Solorzano, scribed for Aby Dow MD on 01/09/19 at 2103. Status of Scribe Document: Ready
[2019-01-09 21:13] VITALS: BP 0/0
== END 2019-01-09 21:02 | disposition home or self-care (01) ==
LOC: ED 20:02
DX: Z53.21 Procedure and treatment not carried out due to patient leaving prior to being seen by health care provider (principal)
CPT/HCPCS: 99282